=== PATIENT | female | born 1965 | race Caucasian/White ===

== ENCOUNTER 2018-03-12 07:00 | Emergency (ER) | payer SELFPAY ==
[~2018-03-12] VITALS: Ht 157.4 cm; Wt 70.8 kg
[~2018-03-12 07:00] MED LIST: ANAPROX DS550 MG PO; AUGMENTIN 875875 MG PO; CATAFLAM50 MG PO; CIPROFLOXACIN500 MG PO; COMPLEXED POTAS99 MG PO; DAYPRO600 M1 PO; DONNATAL1 TAB PO; EES400 MG PO; FLEXERIL5 MG PO; FOLIC ACID1 MG PO; HEP-FORTE1 CAP PO; IBUPROFEN 200200 MG PO; MEDROL DOSEPAK4 MG PO; MOTRIN400 MG PO; MOTRIN800 MG PO; MULTIVITAMIN1 SGL PO; PEPCID20 MG PO; PREDNICOT20 MG PO; PREDNISONE20 MG PO; PREDNISONE5 MG PO; PROVENTIL0.09 MG/AC IH; ROBAXIN750 MG PO; TESSALON PERLE200 MG PO; TRAMADOL HCL50 MG PO; TRAMADOL50 MG PO; VIBRAMYCIN100 MG PO; VICODIN 500 MG-1 TAB PO; VICODIN ES 7501 TAB PO; VITAMIN; VITAMIN B122500 MCG IM; VOLTAREN50 M1 PO; WYMOX500 MG PO; ZANTAC150 MG PO
== END 2018-03-12 08:13 | disposition home or self-care (01) ==
LOC: ED 07:00
DX: M79.671 Pain in right foot (principal); F17.200 Nicotine dependence, unspecified, uncomplicated; F10.10 Alcohol abuse, uncomplicated; Z88.6 Allergy status to analgesic agent; Z88.1 Allergy status to other antibiotic agents; Z88.5 Allergy status to narcotic agent

== ENCOUNTER 2019-12-13 12:38 | Emergency (ER) | payer SELFPAY ==
[~2019-12-13] VITALS: Ht 157.4 cm; Wt 89.4 kg
[~2019-12-13 12:38] MED LIST changes: +Motrin,Rufen400 MG PO; +TYLENOL325 M1 PO
[2019-12-13 13:13] LABS: BASO # 0.1 10*3/uL (0.0-0.1); EOS # 0.2 10*3/uL (0.0-0.4); EOS % 1.6 % (1.0-4.0); HEMATOCRIT 47.3 % (37.0-47.0); HEMOGLOBIN 15.3 g/dl (12.0-16.0); LYMPH # 2.9 10*3/uL (1.3-4.4); LYMPH % 27.6 % (27.0-41.0); MEAN CELL VOLUME 93.7 fl (81.0-99.0); MEAN CORPUSCULAR HGB 30.3 pg (27.0-31.0); MEAN CORPUSCULAR HGB CONC 32.3 g/dl (33.0-37.0); MEAN PLATELET VOLUME 9.7 fl (9.6-12.3); MONO # 0.9 10*3/uL (0.1-1.0); MONO % 8.2 % (3.0-9.0); NEUT # 6.4 10*3/uL (2.3-7.9); NEUT % 61.3 % (47.0-73.0); PLATELET COUNT AUTOMATED 314 10*3/uL (130-400); RED BLOOD COUNT 5.05 10*6/uL (4.10-5.10); RED CELL DISTRI WIDTH 14.2 % (0-14.5); WHITE BLOOD COUNT 10.5 10*3/uL (4.8-10.8)
[2019-12-13 13:23] LABS: ACT PARTIAL THROMBO TIME 31.8 SECONDS (20.0-32.1); INTERNATIONAL NORM RATIO 0.9 (2.0-3.5)
[2019-12-13 13:27] LABS: ALBUMIN 3.4 gm/dl (3.1-4.5); BUN 11 mg/dl (7-24); CHLORIDE 109 mmol/L (98-107); CREATININE 0.94 mg/dL (0.55-1.02); SGOT/AST 14 IU/L (3-35); SGPT/ALT 16 U/L (12-78); SODIUM 141 mmol/L (136-145)
[2019-12-13 13:29] LABS: ALKALINE PHOSPHATASE 63 U/L (45-117)
[2019-12-13 13:31] LABS: TROPONIN I < 0.015 ng/ml (<0.045)
[2019-12-13] MEDS ORDERED: TYLENOL325 M1 PO (14:37)
[2019-12-13] MEDS ORDERED: NAPROSYN500 MG PO (14:37)
[2019-12-13] MEDS ORDERED: CYCLOBENZAPRINE10 MG PO (14:37)
== END 2019-12-13 16:32 | disposition home or self-care (01) ==
LOC: ED 12:38
PROVIDERS: Emergency Medicine
DX: M54.2 Cervicalgia (principal); R07.89 Other chest pain; M43.6 Torticollis; R05 Cough; J44.9 Chronic obstructive pulmonary disease, unspecified; Z88.1 Allergy status to other antibiotic agents; Z88.6 Allergy status to analgesic agent

== ENCOUNTER 2022-08-21 19:29 | Emergency (ER) | payer OTHER ==
[~2022-08-21] VITALS: Ht 162.5 cm; Wt 99.8 kg
[~2022-08-21 19:29] MED LIST changes: +CYCLOBENZAPRINE10 MG PO; +NAPROSYN500 MG PO
[2022-08-21 19:54] LABS: BASO # 0.1 10*3/uL (0.0-0.1); BASO % 0.7 % (0.0-1.0); EOS # 0.2 10*3/uL (0.0-0.4); EOS % 2.2 % (1.0-4.0); HEMATOCRIT 49.8 % (37.0-47.0); LYMPH # 3.3 10*3/uL (1.3-4.4); LYMPH % 34.4 % (27.0-41.0); MEAN CELL VOLUME 95.2 fl (81.0-99.0); MEAN CORPUSCULAR HGB 31.4 pg (27.0-31.0); MEAN CORPUSCULAR HGB CONC 32.9 g/dl (33.0-37.0); MEAN PLATELET VOLUME 9.7 fl (9.6-12.3); MONO # 0.8 10*3/uL (0.1-1.0); MONO % 8.2 % (3.0-9.0); NEUT # 5.3 10*3/uL (2.3-7.9); NEUT % 54.2 % (47.0-73.0); PLATELET COUNT AUTOMATED 296 10*3/uL (130-400); RED BLOOD COUNT 5.23 10*6/uL (4.10-5.10); RED CELL DISTRI WIDTH 14.4 % (0-14.5); WHITE BLOOD COUNT 9.7 10*3/uL (4.8-10.8)
[2022-08-21 20:04] LABS: INTERNATIONAL NORM RATIO 0.9 (2.0-3.5)
[2022-08-21 20:11] LABS: ALKALINE PHOSPHATASE 71 U/L (45-117); BUN 16 mg/dl (7-24); CHLORIDE 111 mmol/L (98-107); CREATININE 1.03 mg/dL (0.55-1.02); POTASSIUM 4.1 mmol/L (3.5-5.1); SGOT/AST 14 IU/L (3-35); SGPT/ALT 17 U/L (12-78); SODIUM 143 mmol/L (136-145); TOTAL PROTEIN 7.2 gm/dL (6.4-8.2)
[2022-08-21] MEDS ORDERED: PREDNISONE20 M1 PO (21:17)
== END 2022-08-21 22:58 | disposition home or self-care (01) ==
LOC: ED 19:29
PROVIDERS: Family Medicine
DX: J44.1 Chronic obstructive pulmonary disease with (acute) exacerbation (principal); Z20.822 Contact with and (suspected) exposure to COVID-19; Z88.1 Allergy status to other antibiotic agents; Z88.6 Allergy status to analgesic agent